=== PATIENT | male | born 1980 | race Two or more races ===

== ENCOUNTER → 2020-09-29 | Outpatient (CLI) | payer OTHER ==
--- NOTE | 2020-09-30 10:13 | REP ---
INDICATION: RT SIDED DIRECT VS INDIRECT HERNIA COMPARISON: None TECHNIQUE: Axial noncontrast images from the lung bases to the pubic symphysis with coronal and sagittal reformations. This CT examination was performed using the following dose reduction techniques: Automated exposure control, adjustment of mA and/or kv according to the patient's size, and use of iterative reconstruction technique. FINDINGS: Lung bases are clear. Visualized heart and pericardium normal. Liver, spleen, pancreas, gallbladder, bilateral adrenal glands and kidneys are normal. The enteric system is unremarkable and without obstruction or acute inflammatory process. Normal terminal ileum and appendix identified in the right lower quadrant. Pelvis demonstrates normal bladder and age-appropriate prostate/seminal vesicles. No evidence for inguinal hernia. Few bilateral inguinal lymph nodes are nonspecific and measure up to approximately 15 mm maximal diameter. No ascites. No free air. No focal inflammatory stranding. Abdominal aorta without aneurysm. Musculoskeletal structures are intact and without acute osseous abnormality. IMPRESSION: No acute abdominopelvic pathology appreciated. No evidence for inguinal hernia. Few bilateral groin lymph nodes are nonspecific and measure up to 15 mm. <Electronically signed by Deon Oneill > 09/30/20 [id number]
== END ==
LOC: M RAD 18:01
PROVIDERS: ATTEND Surgery
DX: R10.9 Unspecified abdominal pain (principal); K46.9 Unspecified abdominal hernia without obstruction or gangrene

== ENCOUNTER → 2021-03-10 | Outpatient (CLI) | payer OTHER ==
[~2021-03-10] MED LIST: ISOVUE-300 61% 50ML VIAL As Ordered ONE; LIDOCAINE 1% MDV 20ML VIAL As Ordered ONE; TRIAMCINOLONE ACETONIDE SUSP 40 MG/ML VIAL (J3301) As Ordered ONE
--- NOTE | 2021-03-10 16:23 | REP ---
INDICATION: ISCHIOCAPSULAR LIGAMENT SPRAIN RT HIP. COMPARISON: None. TECHNIQUE: The procedure was performed under the direct supervision of Dr. Mendoza. The benefits and risks including but not limited to pain infection and bleeding and anaphylaxis were explained to the patient and informed consent was obtained. The right femoral neck was localized using fluoroscopic guidance. The skin was prepped and draped in a sterile fashion. 1% lidocaine was used as a local anesthetic. Using fluoroscopic guidance, and last image hold technology, a 22-gauge spinal needle was inserted and advanced to the femoral neck. 0.5 ml of Isovue-300 was injected to verify placement. Ten ml of a solution containing 9 ml of 1% Xylocaine and 1 mL of Kenalog 40 mg was injected. The needle was then removed. The patient tolerated the procedure well and there were no immediate complications. Less than 6 seconds of fluoro time was utilized for this procedure. FINDINGS: None IMPRESSION: Fluoro guidance for right hip injection. <Electronically signed by Rolando Souza > 03/10/21 1609 <Electronically signed by Aram Mendoza > 03/10/21 [id number]
== END ==
LOC: M RADPRO 13:11
PROVIDERS: ATTEND Physician Assistant Surgical
DX: M24.851 Other specific joint derangements of right hip, not elsewhere classified (principal)
CPT/HCPCS: 20610; 77002; J3301; Q9967

== ENCOUNTER 2021-09-22 16:43 | Emergency (ER) | payer OTHER ==
[~2021-09-22] VITALS: Ht 170.2 cm; Wt 84.1 kg
[2021-09-22 16:44] VITALS: BP 127/70
[2021-09-27] MEDS ORDERED: OMEP40CA4 PO (11:23)
[2021-09-27] MEDS ORDERED: VITA100093 PO (11:23)
== END 2021-09-22 22:39 | disposition left against medical advice (07) ==
LOC: M ED 16:43
DX: Z53.21 Procedure and treatment not carried out due to patient leaving prior to being seen by health care provider (principal)

== ENCOUNTER 2021-10-11 13:03 | Day surgery (SDC) | payer OTHER ==
[~2021-10-11] VITALS: Ht 171.4 cm; Wt 82.6 kg
[~2021-10-11 13:03] MED LIST changes: -ISOVUE-300 61% 50ML VIAL As Ordered ONE; -LIDOCAINE 1% MDV 20ML VIAL As Ordered ONE; +NS 1,000 ML IV ONE; +OMEP40CA4 PO; -TRIAMCINOLONE ACETONIDE SUSP 40 MG/ML VIAL (J3301) As Ordered ONE; +VITA100093 PO; +fentaNYL 100 MCG/2 ML INJECTION As Ordered ONE; +propofoL 200 MG/20 ML VIAL As Ordered ONE
[2021-10-11] MEDS ORDERED: propofoL 200 MG/20 ML VIAL As Ordered ONE (13:35)
[2021-10-11 14:15] VITALS: BP 121/76
== END 2021-10-11 14:24 | disposition home or self-care (01) ==
LOC: M OPP 13:03
PROVIDERS: ATTEND Internal Medicine Gastroenterology
DX: K22.70 Barrett's esophagus without dysplasia (principal); K29.70 Gastritis, unspecified, without bleeding; R12 Heartburn; Z79.899 Other long term (current) drug therapy; Z91.013 Allergy to seafood; Z86.16 Personal history of COVID-19
CPT/HCPCS: 43239; 88305; J3010